=== PATIENT | female | born 1970 ===

== ENCOUNTER 2016-08-12 18:14 | Inpatient (IN) | payer OTHER ==
[2016-08-12 20:03] LABS: Basophils % (Auto) 0.4 % (0.0-1.8); Eosinophils % (Auto) 1.2 % (0.0-4.3); Hematocrit 32.7 % (30.3-42.9); Mean Corpuscular HGB Conc 31 % (30-34); Platelet Count 470 K/mm3 (140-440); Red Blood Count 4.91 M/mm3 (3.65-5.03); Red Cell Distribution Width 18.3 % (13.2-15.2); White Blood Count 8.9 K/mm3 (4.5-11.0)
[2016-08-12 20:05] LABS: Mean Corpuscular Hemoglobin 20 pg (28-32); Mean Corpuscular Volume 67 fl (79-97)
[2016-08-12 20:25] LABS: Alanine Aminotransferase 129 units/L (7-56); Alkaline Phosphatase 248 units/L (35-129); Anion Gap 16 mmol/L; Bilirubin,Total < 0.2 mg/dL (0.1-1.2); Blood Urea Nitrogen 9 mg/dL (7-17); Calcium 8.9 mg/dL (8.4-10.2); Carbon Dioxide 23 mmol/L (22-30); Chloride 99.5 mmol/L (98-107); Glucose 114 mg/dL (65-100); Potassium 4.8 mmol/L (3.6-5.0); Sodium 134 mmol/L (137-145); Total Protein 8.1 g/dL (6.3-8.2)
[2016-08-12 20:29] LABS: Bacteria,Urine 1+ /HPF (Negative); Bilirubin,Urine NEG (Negative); Blood,Urine MOD (Negative); Ketones,Urine NEG (Negative); Leukocyte Esterase,Urine NEG (Negative); Mucus,Urine FEW /HPF; Nitrite,Urine NEG (Negative); Protein,Urine <15 mg/dL mg/dL (Negative); Urobilinogen,Urine < 2.0 mg/dL (<2.0)
[2016-08-12 21:19] LABS: Lipase 2294 units/L (13-60)
[2016-08-13] MEDS ORDERED: ZOFRAN IV ONE (01:57)
[2016-08-13] MEDS ORDERED: NACL 0.9% 1000 ML 1,000 ML IV ONE (01:57)
[2016-08-13] MEDS ORDERED: DILAUDID IV ONE (01:57)
--- NOTE | 2016-08-13 02:04 | Emergency Department Report ---
HPI - General Chief Complaint: Abdominal Pain Time Seen by Provider: 08/13/16 00:17 - HPI HPI: The patient is a 45-year-old female who presents for evaluation of abdominal pain. The patient reports constant epigastric abdominal pain for the past 5 days, 10/10 in severity, sharp in quality, exacerbated with eating, and associated with nausea and nonbilious, nonbloody emesis. The patient denies fever, chills, night sweats, diarrhea, blood in the stool, dark tarry stool, dysuria, hematuria, flank pain, genital discharge, inability to pass flatus. ED Past Medical Hx - Social History Smoking Status: Never Smoker Substance Use Type: None ED Review of Systems ROS: Stated complaint: ABD PAIN Other details as noted in HPI Constitutional: denies: fever ENT: denies: throat or neck pain Respiratory: denies: cough, shortness of breath Cardiovascular: denies: chest pain Endocrine: denies unexplained weight loss or gain Gastrointestinal: reports abdominal pain, nausea Genitourinary: denies: dysuria Musculoskeletal: denies: leg swelling Skin: denies: rash Neurological: denies: headache Hematological/Lymphatic: denies: easy bleeding or easy bruising Psych: denies sadness or hopelessness Physical Exam - Physical Exam Vital Signs: Vital Signs 08/12/16 08/12/16 19:38 19:46 Temperature 97.9 F 97.9 F Pulse Rate 80 80 Respiratory 20 20 Rate Blood Pressure 133/82 Blood Pressure 133/82 [Right] O2 Sat by Pulse 100 100 Oximetry Physical Exam: General: well-nourished, well-developed, patient is morbidly obese Head: Normocephalic, atraumatic Eyes: normal sclera ENT: Mucous membranes are pale and dry Neck: No neck stiffness, no cervical adenopathy Respiratory: Breath sounds equal bilaterally, no wheezing, rales, or rhonchi Cardio: S1 and S2 present, no murmurs, rubs, gallops, capillary refill is delayed Abdomen: Normoactive bowel sounds, soft abdomen, epigastric tenderness to palpation present, no rigidity, no guarding or rebound tenderness Chest WALL/Back: No tenderness to palpation of the chest wall, no CVA tenderness with percussion Musc: No pitting edema Skin: No rash Neuro: no facial drooping, normal speech Psych: Normal affect ED Course Vital Signs 08/12/16 08/12/16 19:38 19:46 Temperature 97.9 F 97.9 F Pulse Rate 80 80 Respiratory 20 20 Rate Blood Pressure 133/82 Blood Pressure 133/82 [Right] O2 Sat by Pulse 100 100 Oximetry ED Medical Decision Making - Lab Data Result diagrams: 08/12/16 19:52 08/12/16 19:52 - Medical Decision Making The patient was seen and examined by myself. The patient is placed on a residential monitor and continuous pulse ox. On initial evaluation, the patient was found to be in no distress. Evaluation orders are placed. IV access is established and the patient is given 1 L normal saline fluid bolus and Zofran for nausea, and IV Dilaudid for pain. Lab results revealed significantly elevated lipase at 2200, and mildly elevated LFTs, consistent with pancreatitis , likely gallstone in etiology. Lab results otherwise were non-concerning including hemoglobin, hematocrit, electrolytes, renal function. The patient was reevaluated and reported improvement in pain, for persistence of pain and nausea. The patient will be admitted for further evaluation of etiology of pancreatitis, and for continued pain management fluid resuscitation. The on- call hospitalist service was contacted. They agreed to admit the patient for further treatment and close monitoring. The ED admit order was placed. The patient was admitted in guarded condition. Critical care attestation.: If time is entered above; I have spent that time in minutes in the direct care of this critically ill patient, excluding procedure time. ED Disposition Clinical Impression: Dehydration, Abdominal pain, acute, epigastric Pancreatitis, acute Qualifiers: Pancreatitis type: biliary Acute pancreatitis complication: unspecified Qualified Code(s): K85.10 - Biliary acute pancreatitis without necrosis or infection Disposition: OP ADMITTED IP TO THIS HOSP Is pt being admited?: Yes Does the pt Need Aspirin: Yes Condition: Fair Instructions: Abdominal Pain (ED) Referrals: PRIMARY CARE, [Primary Care Provider] - 3-5 Days Time of Disposition: 01:58
--- NOTE | 2016-08-13 02:36 | History and Physical Report ---
History of Present Illness Date of examination: 08/13/16 History of present illness: 45 -year-old woman with no medical problems comes emergency room with complaints of abdominal pain. Abdominal pain is in the epigastric area which she describes as a sharp pain, started 5 days ago, intermittent in nature lasting for 10 minutes, radiating to the back, she cannot identify exacerbating or relieving factors. Admits to multiple episodes of nausea vomiting Patient denies chest pain, palpitation, shortness of breath, cough, hematochezia, dysuria, frequency, focal weakness, dysarthria, fever chills, polydipsia polyuria, hot or cold intolerance, easy bruisability, or rash or bleeding from mucosal membrane, rhinorrhea, epistaxis, earache, tinnitus, blurry vision, eye discharge, anxiety, depression. Other review of systems negative PAST SURGICAL HISTORY: None SOCIAL HISTORY: Denies alcohol, tobacco, drugs FAMILY HISTORY: Hypertension Medications and Allergies Allergies Allergy/AdvReac Type Severity Reaction Status Date / Time Unable to Assess Allergy Unverified 08/12/16 19:49 Active Meds: Active Medications Sodium Chloride (Nacl 0.9% 1000 Ml) 1,000 mls @ 999 mls/hr IV ONCE ONE Stop: 08/13/16 02:57 Exam - Physical Exam Narrative exam: Gen. appearance: Patient lying in bed, no apparent distress HEENT: Normocephalic, atraumatic, pupils equally round and reactive to light, extraocular movement intact, and no sclericterus,. No JVD or thyromegaly or nodule,neck supple, no carotid bruit ,mucous membranes moist, no exudate or erythema Heart: S1, S2, regular rate and rhythm Lungs: Clear to auscultation bilaterally, breathing comfortable Abdomen: Positive bowel sounds, tender in the epigastric area, nondistended, no organomegaly Extremity: No edema, cyanosis, clubbing Skin: No rash, nodules, warm, dry Neuro: Oriented 3, cranial nerves II-12 intact, speech is fluent, motor and sensory intact - Constitutional Vitals: Temp Pulse Resp BP Pulse Ox 97.9 F 80 20 133/82 100 08/12/16 19:46 08/12/16 19:46 08/12/16 19:46 08/12/16 19:46 08/12/16 19:46 Results - Labs CBC & Chem 7: 08/12/16 19:52 08/12/16 19:52 Labs: Abnormal lab results 08/12/16 08/12/16 Range/Units 19:52 19:52 Hgb 10.0 L (10.1-14.3) gm/dl MCV 67 L (79-97) fl MCH 20 L (28-32) pg RDW 18.3 H (13.2-15.2) % Plt Count 470 H (140-440) K/mm3 Sodium 134 L (137-145) mmol/L Creatinine 0.6 L (0.7-1.2) mg/dL Glucose 114 H (65-100) mg/dL AST 117 H (5-40) units/L ALT 129 H (7-56) units/L Alkaline Phosphatase 248 H (35-129) units/L Lipase 2294 H (13-60) units/L Assessment and Plan Abdominal pain, rule out pancreatitis Obesity Admits medicine Start IV fluids, bowel rest, IV morphine Check ultrasound of abdomen, lipid profile Start DVT prophylaxis
--- NOTE | 2016-08-13 03:04 | Admit Criteria Form ---
Admission Criteria Documentation: ABDOMINAL PAIN Clinical Indications for Admission to Inpatient Care (Place 'X' for any and all applicable criteria): Admission is indicated for ANY ONE of the following(1)(2)(3)(4)(5): [X ]I. Inpatient admission required rather than observation care (Also use Abdominal Pain: Observation Care, as appropriate) because of ANY ONE of the following: [ ]a) Severe pain requiring acute inpatient management [X ]b) Identification of etiology/finding that requires inpatient care (eg, aortic dissection, free air) [ ]c) Absent bowel sounds with complete ileus(6) [ ]d) Suspected toxic megacolon [ ]e) Severe electrolyte abnormalities requiring inpatient care [ ]f) High fever or infection requiring inpatient admission as indicated by ANY ONE of following(7)(8): [ ] i) Appropriate outpatient or observational care antimicrobial treatment unavailable, not effective, or not feasible [ ] ii) Documented bacteremia [ ] iii) Temperature > 104.9 degrees F (oral) [ ] iv) T >103.1 F (oral) or < 96.8 F(rectal) that does not respond to all emergency treatment measures [ ]g) Signs of intestinal obstruction [B] [ ]h) Hemodynamic instability [ ]i) IV fluid to replace significant ongoing losses (greater than 3 L/m2 per day) (12)(13) [ ]j) Percutaneous or open drainage (eg, abscess, biliary tract ) procedures [ ]k) Parenteral nutrition regimen that must be implemented on inpatient basis [ ]l) Other condition,treatment or monitoring requiring inpatient admission. [ ]II. Peritoneal signs present [ ]III. Surgery needed that cannot be performed on an ambulatory basis. [ ]IV. Evaluation requires patient to not eat or drink for extended period ( eg, more than 24 hours). [ ]V. Contraindications and/or Inappropriate clinical situations for Observational Care in patients with abdominal pain, when ANY ONE of the following is required: [ ]a) Thorough evaluation is required to prevent catastrophic events due to delays in diagnosing (e.g.Mesenteric ischemia) 1,3 [ ]b) Patient with severe pathology or with chronic symptoms unlikely to improve in the ED stay (3) [ ]. General contraindications and/or Inappropriate clinical situations for Observational Care in patients with abdominal pain, when ANY ONE of the following is required: [ ]a) Prediction of prolongation of LOS based on ANY ONE of the following may be considered as a contraindication for observational care 2, 3, 4, 5, 6, 7, 8, 9, 10, 11 [ ]i) Age > 65 yrs. [ ]ii) Patient arriving by ambulance [ ]iii) Patient with high acuity [ ]iv) Patient requiring vital sign monitoring [ ]v) Patient on IV medication [ ]b) Systolic blood pressures 180mmHg 3,12 [ ]c) Patient with altered mental status including delirium and other alteration of consciousness, (3) [ ]d) Patient whose discharge disposition will be to a intermediate home or rehabilitation home should not be managed in Emergency Department Observation Unit. CMS rule requires 3 days hospital stay before such placement.3,13 [ ]e) Patient with failure to thrive due to broad array of etiologies 3,16,17 [ ]f) Inability to ambulate 3,14 Extended stay beyond goal length of stay may be needed for(2)(3): [ ]a) Persistent abdominal pain with suspected intra-abdominal process [ ]b) Diagnosed condition requiring continued stay (e.g., pancreatitis, complicated diverticulitis) [ ]c) Surgery (e.g., colectomy) The original [facility] content created by [employer] has been revised. The portions of the content which have been revised are identified through the use of italic text or in bold, and [facility] has neither reviewed nor approved the modified material.All other unmodified content is copyright [facility]. Please see references footnoted in the original [facility] edition 2016 Admission Criteria Met: Yes
--- NOTE | 2016-08-13 04:14 | Ultrasound Report ---
FINAL REPORT PROCEDURE: US ABDOMEN LIMITED RIGHT UPPER QUADRANT GALLBLADDER REGION TECHNIQUE: Real-time sonography was performed of the right upper quadrant gallbladder region with image documentation. CPT 95686 HISTORY: Abdominal pain. COMPARISON: No prior studies are available for comparison. FINDINGS: The liver shows no ultrasound abnormality. There are multiple moderate size stones in the gallbladder causing some shadowing. There is also moderate gallbladder wall thickening measuring up to 4.8 millimeters. The common bile duct is normal measuring 4.8 millimeters. Visualized portions of the pancreas show no ultrasound abnormality. The right kidney measures 10.4 centimeters in length and shows no ultrasound abnormality. The left kidney and the spleen are not evaluated on this limited right upper quadrant gallbladder region only ultrasound. IMPRESSION: 1. There are multiple moderate size stones in the gallbladder causing some shadowing. There is also some gallbladder wall thickening, with the wall measuring up to 4.8 millimeters. This is nonspecific but can be seen in gallbladder disease 2. There is no ultrasound evidence of biliary dilatation. 3. The remaining visualized structures show no ultrasound abnormality.
[2016-08-13] MEDS ORDERED: DELTASONE PO ONE (04:54)
[2016-08-13] MEDS ORDERED: ZOFRAN IV PRN (10:00)
[2016-08-13] MEDS ORDERED: DULCOLAX PR PRN (10:00)
[2016-08-13] MEDS ORDERED: TYLENOL PO PRN (10:00)
[2016-08-13] MEDS ORDERED: MILK OF MAGNESIA PO PRN (10:00)
--- NOTE | 2016-08-13 11:18 | Event Note ---
Date: 08/13/16 45 year old female with gallstone pancreatis, normal t bili, other LFT s elevated, MRCP pending, lipase 1999's , ultrasound reveals gallstones, normal CBD, will schedule lap maryam as pancreatitis resolves, rule out common duct stone,(unlikely), will follow.
--- NOTE | 2016-08-13 14:55 | Consultation ---
History of Present Illness Consult date: 08/13/16 Reason for consult: other (gallstone pancreatitis) Past History Past Surgical History: No surgical history Social history: no significant social history Family history: no significant family history Medications and Allergies Allergies Allergy/AdvReac Type Severity Reaction Status Date / Time No Known Allergies Allergy Unverified 08/13/16 05:57 Home Medications Medication Instructions Recorded Confirmed Last Taken Type No Known Home Medications [No 08/13/16 08/13/16 Unknown History Reported Home Medications] Active Meds: Active Medications Acetaminophen (Tylenol) 650 mg PO Q4H PRN PRN Reason: Pain MILD(1-3)/Fever >100.5/HAMEED Bisacodyl (Dulcolax) 10 mg TN QDAY PRN PRN Reason: Constipation unrelieved by MOM Sodium Chloride (Nacl 0.9% 1000 Ml) 1,000 mls @ 125 mls/hr IV DIRECT IRMA Magnesium Hydroxide (Milk Of Magnesia) 30 ml PO Q4H PRN PRN Reason: Constipation Morphine Sulfate (Morphine) 2 mg IV Q4H PRN PRN Reason: Pain, Moderate (4-6) Ondansetron HCl (Zofran) 4 mg IV Q8H PRN PRN Reason: N/V unrelieved by Reglan Review of Systems - Gastrointestinal abdominal pain Exam Vital Signs Temp Pulse Resp BP Pulse Ox 97.9 F 80 20 133/82 100 08/12/16 19:38 08/12/16 19:38 08/12/16 19:38 08/12/16 19:38 08/12/16 19:38 - General physical appearance Positive: no distress - Eyes Positive: PERRL, normal occular movement - ENT Positive: normal pinna, normal nares, normal mucosa, no hearing loss, no congestion - Neck Positive: no masses, no bruits, trachea midline, no venous distension - Respiratory Positive: normal expansion, normal respiratory effort, clear to auscultation - Cardiovascular Rhythm: regular Heart Sounds: Present: S1 & S2. Absent: rub, click - Extremities Extremities: no ischemia, pulses symmetrical, No edema Peripheral Pulses: within normal limits - Breasts Breasts: deferred - Abdomen Abdomen: Present: tender (tender to deep palpation in epigastric area, no rebound or guarding) Hernia: none - Genitourinary Male Genitourinary: scrotal edema - Integumentary no rash - Neurologic Neurologic: alert and oriented to time, place and person, motor strength and sensation are grossly intact - Musculoskeletal normal gait, normal posture Results - Labs 08/12/16 19:52 08/12/16 19:52 Assessment and Plan Gallstone pancreatitis, MRCP pending, agree with NPO, pain control , iv fluids, serial lipase to trend pancreatitis, once clearly improving, lap maryam and discharge home check results of MRCP.
[2016-08-13] MEDS: NACL 0.9% 1000 ML 1,000 ML IV SCH (16:30)
--- NOTE | 2016-08-13 18:50 | Anesthesia Consultation ---
Anesthesia Consult and Med Hx Date of service: 08/13/16 - Airway Anesthetic Teeth Evaluation: Chipped (broken tooth upper left #11) ROM Head & Neck: Adequate Mental/Hyoid Distance: Adequate Mallampati Class: Class III Intubation Access Assessment: Possibly Difficult - Pre-Operative Health Status ASA Pre-Surgery Classification: ASA3 Proposed Anesthetic Plan: General - Central Nervous System Hx Psychiatric Problems: No - Gastrointestinal Hx Gastroesophageal Reflux Disease: Yes - Endocrine Hx Liver Disease: Yes (gallbladder disease) - Other Systems Hx Obesity: Yes (Morbid obesity) - Additional Comments Anesthesia Medical History Comments: Patient speaks Swazi only. Consent signed and questions answered with the help of son-in-law who translated for the patient
[2016-08-14] MEDS: NACL 0.9% 1000 ML 1,000 ML IV SCH ×4 (00:49→22:35)
[2016-08-14 03:42] LABS: Alanine Aminotransferase 73 units/L (7-56); Albumin 3.5 g/dL (3.9-5); Albumin/Globulin Ratio 0.9 %; Alkaline Phosphatase 178 units/L (35-129); Anion Gap 17 mmol/L; BUN/Creatinine Ratio 13.33; Bilirubin,Total 0.3 mg/dL (0.1-1.2); Blood Urea Nitrogen 8 mg/dL (7-17); Calcium 8.4 mg/dL (8.4-10.2); Carbon Dioxide 24 mmol/L (22-30); Chloride 101.5 mmol/L (98-107); Glucose 94 mg/dL (65-100); Lipase 77 units/L (13-60); Potassium 4.4 mmol/L (3.6-5.0); Sodium 138 mmol/L (137-145); Total Protein 7.4 g/dL (6.3-8.2)
[2016-08-14 04:06] LABS: Basophils % (Auto) 0.4 % (0.0-1.8); Eosinophils % (Auto) 1.2 % (0.0-4.3); Hemoglobin 9.6 gm/dl (10.1-14.3); Mean Corpuscular HGB Conc 31 % (30-34); Mean Corpuscular Hemoglobin 21 pg (28-32); Mean Corpuscular Volume 67 fl (79-97); Platelet Count 439 K/mm3 (140-440); Red Blood Count 4.66 M/mm3 (3.65-5.03); White Blood Count 7.3 K/mm3 (4.5-11.0)
[2016-08-14] MEDS ORDERED: PEPCID IV NR (07:00)
[2016-08-14] MEDS ORDERED: VERSED IV NR (07:00)
[2016-08-14] MEDS ORDERED: SUBLIMAZE IV PRN (12:34)
--- NOTE | 2016-08-14 12:34 | Anesthesia Day of Surgery ---
Anesthesia Day of Surgery - Day of Surgery Patient Examined: Yes Patient H&P Reviewed: Yes Patient is NPO: Yes Beta Blockers: No Cardiac Clearance: No Pulmonary Clearance: No
--- NOTE | 2016-08-14 12:34 | Anesthesia Consultation ---
Anesthesia Consult and Med Hx Date of service: 08/14/16 - Airway Anesthetic Teeth Evaluation: Poor, Caps, Edentulous ROM Head & Neck: Adequate Mental/Hyoid Distance: Adequate Mallampati Class: Class III Intubation Access Assessment: Possibly Difficult - Pulmonary Exam CTA: Yes - Cardiac Exam Cardiac Exam: RRR - Pre-Operative Health Status ASA Pre-Surgery Classification: ASA3 Proposed Anesthetic Plan: General - Central Nervous System Hx Psychiatric Problems: No - Gastrointestinal Hx Gastroesophageal Reflux Disease: Yes - Endocrine Hx Liver Disease: Yes (gallbladder disease) - Other Systems Hx Obesity: Yes (Morbid obesity) - Additional Comments Anesthesia Medical History Comments: Patient speaks Georgian only. Consent signed and questions answered with the help of son-in-law who translated for the patient
[2016-08-14] MEDS ORDERED: DIPRIVAN 10 MG/ML IV ONE (12:35)
[2016-08-14] MEDS ORDERED: XYLOCAINE MPF 2% ONE (12:36)
[2016-08-14] MEDS ORDERED: ZEMURON IV ONE (12:36)
[2016-08-14] MEDS ORDERED: ANCEF/STERILE WATER 2 GM/20 ML IV NR (13:00)
[2016-08-14] MEDS ORDERED: XYLOCAINE 1% 20 mL INFILTRATI ONE (14:05)
[2016-08-14] MEDS ORDERED: NACL 0.9% IR ONE (14:05)
[2016-08-14] MEDS ORDERED: MARCAINE 0.5% INFILTRATI ONE (14:05)
[2016-08-14] MEDS ORDERED: ROBINUL ONE (14:08)
[2016-08-14] MEDS ORDERED: TORADOL ONE (14:08)
[2016-08-14] MEDS ORDERED: ZOFRAN ONE (14:09)
[2016-08-14] MEDS ORDERED: QUELICIN ONE (14:09)
[2016-08-14] MEDS ORDERED: NEOSTIGMINE ONE (14:09)
--- NOTE | 2016-08-14 14:19 | Progress Note ---
Assessment and Plan Assessment and plan: Michelle is a 45-year-old woman who presents with acute pancreatitis, ultrasound of her right upper quadrant showed multiple gallstones without any evidence of biliary duct dilatation 1. Pancreatitis Concern for gallstone pancreatitis, surgery input appreciated, follow-up MRCP, continue supportive care with IV fluids pain management and antiemetics, we'll start her on a clear liquid diet 2. Cholelithiasis No evidence of cholecystitis, surgery input appreciated, she may benefit from elective cholecystectomy prior to discharge 3. Chronic anemia Stable, will give iron supplements History Interval history: Abdominal pain is improved, nausea is improved. Hospitalist Physical - Physical exam Narrative exam: General: Patient appears well in no distress HEENT: MMM, EOMI cardiac: S1-S2 heard lungs: clear to auscultation, abdomen: Epigastric tenderness extremities: no edema clubbing or cyanosis Skin: no rash or lesion Neuro: no focal deficit Psych: appropriate behavior and mood, cognition intact - Constitutional Vitals: Temp Pulse Resp BP Pulse Ox 0 F L 0 L 0 L 0/0 97 08/14/16 12:14 08/14/16 12:14 08/14/16 12:14 08/14/16 12:14 08/14/16 08:22 Results - Labs CBC & Chem 7: 08/14/16 03:05 08/14/16 03:05 Labs: Laboratory Last Values WBC 7.3 K/mm3 (4.5-11.0) 08/14/16 03:05 RBC 4.66 M/mm3 (3.65-5.03) 08/14/16 03:05 Hgb 9.6 gm/dl (10.1-14.3) L 08/14/16 03:05 Hct 31.0 % (30.3-42.9) 08/14/16 03:05 MCV 67 fl (79-97) L 08/14/16 03:05 MCH 21 pg (28-32) L 08/14/16 03:05 MCHC 31 % (30-34) 08/14/16 03:05 RDW 18.0 % (13.2-15.2) H 08/14/16 03:05 Plt Count 439 K/mm3 (140-440) 08/14/16 03:05 Lymph % (Auto) 45.3 % (13.4-35.0) H 08/14/16 03:05 [place] % (Auto) 5.8 % (0.0-7.3) 08/14/16 03:05 Eos % (Auto) 1.2 % (0.0-4.3) 08/14/16 03:05 Baso % (Auto) 0.4 % (0.0-1.8) 08/14/16 03:05 Lymph # 3.3 K/mm3 (1.2-5.4) 08/14/16 03:05 [place] # 0.4 K/mm3 (0.0-0.8) 08/14/16 03:05 Eos # 0.1 K/mm3 (0.0-0.4) 08/14/16 03:05 Baso # 0.0 K/mm3 (0.0-0.1) 08/14/16 03:05 Seg Neutrophils % 47.3 % (40.0-70.0) 08/14/16 03:05 Seg Neutrophils # 3.4 K/mm3 (1.8-7.7) 08/14/16 03:05 Sodium 138 mmol/L (137-145) 08/14/16 03:05 Potassium 4.4 mmol/L (3.6-5.0) 08/14/16 03:05 Chloride 101.5 mmol/L (98-107) 08/14/16 03:05 Carbon Dioxide 24 mmol/L (22-30) 08/14/16 03:05 Anion Gap 17 mmol/L 08/14/16 03:05 BUN 8 mg/dL (7-17) 08/14/16 03:05 Creatinine 0.6 mg/dL (0.7-1.2) L 08/14/16 03:05 Estimated GFR > 60 ml/min 08/14/16 03:05 BUN/Creatinine Ratio 13.33 % 08/14/16 03:05 Glucose 94 mg/dL (65-100) 08/14/16 03:05 Calcium 8.4 mg/dL (8.4-10.2) 08/14/16 03:05 Total Bilirubin 0.3 mg/dL (0.1-1.2) 08/14/16 03:05 AST 31 units/L (5-40) 08/14/16 03:05 ALT 73 units/L (7-56) H 08/14/16 03:05 Alkaline Phosphatase 178 units/L (35-129) H 08/14/16 03:05 Total Protein 7.4 g/dL (6.3-8.2) 08/14/16 03:05 Albumin 3.5 g/dL (3.9-5) L 08/14/16 03:05 Albumin/Globulin Ratio 0.9 % 08/14/16 03:05 Lipase 77 units/L (13-60) H 08/14/16 03:05 Urine Color Yellow (Yellow) 08/12/16 Unknown Urine Turbidity Clear (Clear) 08/12/16 Unknown Urine pH 6.0 (5.0-7.0) 08/12/16 Unknown Ur Specific [place] 1.011 (1.003-1.030) 08/12/16 Unknown Urine Protein <15 mg/dl mg/dL (Negative) 08/12/16 Unknown Urine Glucose (UA) Neg mg/dL (Negative) 08/12/16 Unknown Urine Ketones Neg mg/dL (Negative) 08/12/16 Unknown Urine Blood Mod (Negative) 08/12/16 Unknown Urine Nitrite Neg (Negative) 08/12/16 Unknown Ur Reducing Substances Not Reportable 08/12/16 Unknown Urine Bilirubin Neg (Negative) 08/12/16 Unknown Urine Ictotest Not Reportable 08/12/16 Unknown Urine Urobilinogen < 2.0 mg/dL (<2.0) 08/12/16 Unknown Ur Leukocyte Esterase Neg (Negative) 08/12/16 Unknown Urine WBC (Auto) 3.0 /HPF (0.0-6.0) 08/12/16 Unknown Urine RBC (Auto) 4.0 /HPF (0.0-6.0) 08/12/16 Unknown U Epithel Cells (Auto) 3.0 /HPF (0-13.0) 08/12/16 Unknown Urine Bacteria (Auto) 1+ /HPF (Negative) 08/12/16 Unknown Urine Mucus Few /HPF 08/12/16 Unknown Urine HCG, Qual Negative (Negative) 08/12/16 Unknown
--- NOTE | 2016-08-14 14:43 | Post Operative Note ---
Pre-op diagnosis: gallstone pancreatitis Post-op diagnosis: same Findings: c/w gallstone pancreatitis Procedure: laparoscopic cholecystectomy Anesthesia: GETA Surgeon: MILDRED NOEL Estimated blood loss: none Pathology: list (GB) Condition: stable Disposition: floor
--- NOTE | 2016-08-14 14:48 | Discharge Summary ---
Providers - Providers Date of Admission: 08/13/16 09:12 Date of discharge: 08/14/16 Attending physician: MD Rosaura DAVIS M.D. Gen Surgery Primary care physician: HOME HEALTH CARE COORDINATOR Hospitalization Reason for admission: gallstone pancreatitis Condition: Good Pertinent studies: ultrasound RUQ Procedures: lap cholecystectomy Hospital course: Pt admitted, npo, iv fluids, pain control, taken to OR had uneventful lap maryam , did well and sent home. Lipase on morning of surgery normal! Pt discharged home on low fat diet with pain meds. Disposition: DISCHARGED TO HOME OR SELFCARE Time spent for discharge: 20 min - Discharge Diagnoses (1) Pancreatitis, acute Status: Acute Qualifiers: Pancreatitis type: biliary Acute pancreatitis complication: unspecified Qualified Code(s): K85.10 - Biliary acute pancreatitis without necrosis or infection Core Measure Documentation - Palliative Care Palliative Care/ Comfort Measures: Not Applicable - Core Measures Any of the following diagnoses?: none Exam - Constitutional Vitals: Temp Pulse Resp BP Pulse Ox 0 F L 0 L 0 L 0/0 97 08/14/16 12:14 08/14/16 12:14 08/14/16 12:14 08/14/16 12:14 08/14/16 08:22 General appearance: Present: no acute distress, well-nourished - EENT Eyes: Present: PERRL ENT: hearing intact, clear oral mucosa - Neck Neck: Present: supple, normal ROM - Respiratory Respiratory effort: normal - Cardiovascular Heart Sounds: Present: S1 & S2. Absent: rub, click - Extremities Extremities: no ischemia Peripheral Pulses: within normal limits - Abdominal General gastrointestinal: Present: soft, non-distended, other (incisions OK) - Rectal Rectal Exam: deferred - Musculoskeletal Musculoskeletal: gait normal, strength equal bilaterally - Psychiatric Psychiatric: appropriate mood/affect, intact judgment & insight Plan Weight Bearing Status: Full Weight Bearing Diet: low fat Wound: open to air Follow up with: PRIMARY CAREMD [Primary Care Provider] - 3-5 Days
--- NOTE | 2016-08-14 15:37 | Post Anesthesia Evaluation ---
- Post Anesthesia Evaluation Patient Participated: Yes Airway Patent: Yes Stable Respiratory Function: Yes Nausea/Vomiting: No Temp > 96.8F: Yes Pain Manageable: Yes Adequeate Hydration: Yes Anesthesia Complications: No Block Receding Appropriately: Not Applicable Patient on Ventilator: No
[2016-08-14] MEDS: DILAUDID IV PRN ×2 (15:43→15:58)
--- NOTE | 2016-08-14 16:04 | Discharge Summary ---
Providers - Providers Date of Admission: 08/13/16 09:12 Attending physician: LUIS FELIPE ANDREW MD Primary care physician: MARIE URBINA MD Hospitalization Condition: Good Hospital course: This is a 45-year-old man who presented with acute gallstone pancreatitis, she was treated with supportive therapy. She was then seen by surgery who performed an uneventful laparoscopic cholecystectomy, patient improved and is being discharged in an improved condition. For chronic anemia she was placed on iron supplements Michelle is a 45-year-old woman who presents with acute pancreatitis, ultrasound of her right upper quadrant showed multiple gallstones without any evidence of biliary duct dilatation Discharge diagnoses 1. Gallstone pancreatitis 2. Cholelithiasis 3. Chronic anemia Disposition: DISCHARGED TO HOME OR SELFCARE Time spent for discharge: 35 minutes Core Measure Documentation - Palliative Care Palliative Care/ Comfort Measures: Not Applicable - Core Measures Any of the following diagnoses?: none Exam - Constitutional Vitals: Temp Pulse Resp BP Pulse Ox 97.0 F L 60 18 118/58 96 08/14/16 15:00 08/14/16 15:30 08/14/16 15:58 08/14/16 15:30 08/14/16 15:30 General appearance: Present: no acute distress, well-nourished - EENT Eyes: Present: PERRL ENT: hearing intact, clear oral mucosa - Neck Neck: Present: supple, normal ROM - Respiratory Respiratory effort: normal Respiratory: bilateral: CTA - Cardiovascular Heart Sounds: Present: S1 & S2. Absent: rub, click - Extremities Extremities: pulses symmetrical, No edema Peripheral Pulses: within normal limits - Abdominal General gastrointestinal: Present: soft, non-tender, non-distended, normal bowel sounds Female genitourinary: Present: normal - Integumentary Integumentary: Present: clear, warm, dry - Musculoskeletal Musculoskeletal: gait normal, strength equal bilaterally - Psychiatric Psychiatric: appropriate mood/affect, intact judgment & insight - Neurologic Neurologic: CNII-XII intact, moves all extremities Plan Follow up with: PRIMARY CARE, [Primary Care Provider] - 3-5 Days Prescriptions: Ferrous Gluconate [Fergon 325 MG tab] 325 mg PO QDAY #30 tablet oxyCODONE /ACETAMINOPHEN [Percocet 5/325 mg] 1 tab PO Q4H PRN #30 tablet PRN Reason: Pain, Moderate
--- NOTE | 2016-08-14 16:15 | Post Anesthesia Evaluation ---
- Post Anesthesia Evaluation Patient Participated: Yes Airway Patent: Yes Stable Respiratory Function: Yes Nausea/Vomiting: No Temp > 96.8F: Yes Pain Manageable: Yes Adequeate Hydration: Yes Anesthesia Complications: No
--- NOTE | 2016-08-14 16:48 | Operative Report ---
PREOPERATIVE DIAGNOSIS: Gallstone pancreatitis. POSTOPERATIVE DIAGNOSIS: Gallstone pancreatitis. OPERATIVE FINDINGS: Were compatible with gallstone pancreatitis. PROCEDURE: Laparoscopic cholecystectomy. ANESTHESIA: General. ESTIMATED BLOOD LOSS: Essentially no blood loss. SPECIMEN: Consisted of the gallbladder. CONDITION: Stable. DISPOSITION: To the floor. DESCRIPTION OF PROCEDURE: After informed consent, the patient was brought to the operating room, induced under general anesthesia, and received IV antibiotics. She was sterilely prepped and draped in a supine fashion with compression stockings in place. A skin wheal was raised in the supraumbilical position with 0.5% Marcaine mixed with 1% lidocaine. A small incision was made with an 11 scalpel. Utilizing standard technique, a Veress needle was introduced, tested and found to be satisfactorily placed and intraabdominal cavity was insufflated to acceptable parameters with CO2. The Veress needle was removed and under direct visualization with standard technique with a 0-degree 5 mm camera, a 5 mm port was placed. Then, all the other ports performed under direct visualization of a light laparoscope in a like fashion, two 5 mm ports were placed in the midclavicular and mid axillary line as well as a 10 mm port in the subxiphoid position. The patient was positioned properly. Operative findings were compatible with gallstone pancreatitis. The gallbladder was aspirated with about 40 mL of bile to take tension off the wall and with a Collins and Gedarren retractor, traction was placed on the apex of the body of the gallbladder in a cephalad direction over the right lobe of the liver. Lateral traction was placed on the infundibulum. Utilizing a Kitner dissector, I dissected out and identified the lymph node of [place], cystic duct, cystic artery, common hepatic and common bile duct. Therefore, the critical view of [place] was established or the triangular safety was maintained. I placed clips on the cystic duct proximally and distally and it was cut. I placed clips on the cystic artery proximally and distally and it was cut then I took out the gallbladder retrograde with a J-hook and removed the gallbladder in a gallbladder bag. I washed out the abdomen with [place]t irrigation system until clear, carefully examined the area. There was no evidence of bleeding and then withdrew the ports under direct visualization of the laparoscope. All the CO2 was allowed to egress from the abdomen. There was no bleeding from the anterior abdominal wall. I closed the skin incisions with 4-0 monopril . The patient was transferred to recovery room in stable condition. JOB# [id number] RODOLFO/NATACHA FLEMING
[2016-08-14] MEDS ORDERED: PERCOCET 5/325 PO PRN (18:35)
[2016-08-14] MEDS ORDERED: ALUM-MAG HYDROX-SIMETH 200-200-20MG/5ML PO PRN (19:48)
[2016-08-14] MEDS: MORPHINE IV PRN (22:36)
--- NOTE | 2016-08-15 00:05 | Discharge Summary ---
DISCHARGE DIAGNOSIS: Gallstone pancreatitis. ADMISSION DIAGNOSIS: Gallstone pancreatitis. PROCEDURE: Ultrasound of the right upper quadrant, laparoscopic cholecystectomy. The patient was sent home afterwards. HOSPITAL COURSE: This is a 45-year-old [place] female, who presented with abdominal pain for several days. She had normal labs with the exception of mildly elevated AST and ALT, normal total bilirubin, and lipase of about 2300. She was admitted from the Emergency Room by the hospitalist, made n.p.o., hydrated, and her pain was controlled with narcotics. There was no role for antibiotics. The patient had her pain controlled with IV narcotics. Her lipase was normal the next morning. Her labs were unremarkable. Her white count was normal. Her LFTs improved. As a result, after appropriate consent, she was taken to surgery. She underwent an uneventful laparoscopic cholecystectomy. She tolerated the procedure well and was transferred to the floor. She was given clear liquid. She was told to stay on a low-fat diet for 2 weeks through a aerospace project engineer, shower daily with soap and water on the wounds. I will see her in my office in 1 week in followup. I gave her the prescription for Percocet for pain. JOB# [id number] RODOLFO/NATACHA
[2016-08-15] MEDS: MORPHINE IV PRN (02:15)
[2016-08-15 09:24] VITALS: BP 110/56
[2016-08-15] MEDS ORDERED: THERAGRAN-M Tab PO SCH (10:00)
== END 2016-08-15 15:19 | disposition home or self-care (01) | DRG 417 ==
LOC: ED 18:14 → EDBD 08-13 09:12 → 3A 08-13 09:12
PROVIDERS: ADMIT Internal Medicine; ATTEND Internal Medicine
PROC: 0FT44ZZ Resection of Gallbladder, Percutaneous Endoscopic Approach (ICD-10-PCS; principal; 2016-08-14)
DX: K80.20 Calculus of gallbladder without cholecystitis without obstruction (principal); K85.10 Biliary acute pancreatitis without necrosis or infection; Z68.42 Body mass index [BMI] 45.0-49.9, adult; E66.9 Obesity, unspecified; D64.9 Anemia, unspecified; Z82.49 Family history of ischemic heart disease and other diseases of the circulatory system
CPT/HCPCS: 36415; 76705; 80053; 81001; 81025; 83690; 84484; 85025; 88304; 96374; 96375; J0330; J0690; J1170; J1885; J2250; J2270; J2405; J2704; J2710; J7030